=== PATIENT | female | born 1995 | race Caucasian/White ===

== ENCOUNTER 2022-08-04 06:44 | Emergency (ER) | payer OTHER ==
[~2022-08-04] VITALS: Ht 157.5 cm; Wt 56.2 kg
[2022-08-04 06:47] VITALS: BP 107/82
--- NOTE | 2022-08-04 07:10 | NUR ---
bibs for right hand laceration last night. bleeding controlled. no infx. csmpt intact right hand
--- NOTE | 2022-08-04 07:22 | NUR ---
Dr. Camp examining patient.
[2022-08-04] MEDS ORDERED: BACI-416 TP (07:25)
[2022-08-04] MEDS ORDERED: BACITRACIN OINT 500 UNITS/GM PKT TP ONE (07:25)
--- NOTE | 2022-08-04 07:30 | NUR ---
report received from nelly rn
--- NOTE | 2022-08-04 08:07 | NUR ---
abrasion to right hand irrigated, bacitracin applied, bandaged
[2022-08-04 08:27] VITALS: BP 122/74
== END 2022-08-04 08:27 | disposition home or self-care (01) ==
LOC: MED 06:44
DX: S60.511A Abrasion of right hand, initial encounter (principal); Z88.0 Allergy status to penicillin; Z79.899 Other long term (current) drug therapy; W26.8XXA Contact with other sharp object(s), not elsewhere classified, initial encounter; Y93.89 Activity, other specified; Y92.89 Other specified places as the place of occurrence of the external cause; Y99.8 Other external cause status
CPT/HCPCS: 90471; 90715; 99283